=== PATIENT | female | born 1995 | race Two or more races ===

== ENCOUNTER 2016-06-01 10:55 | Emergency (ER) | payer MEDICAID ==
[~2016-06-01] VITALS: Ht 154.9 cm; Wt 76.7 kg
[2016-06-01 11:35] LABS: Basophils # (auto) 0 uL; Basophils % (auto) 0.4 % (0.0-2.0); Eosinophils # (auto) 0.1 uL; Eosinophils % (auto) 1.5 % (0.0-7.0); Hematocrit 38.4 % (36.0-46.0); Hemoglobin 12.8 g/dL (12.2-16.2); Lymphocytes # (auto) 1.9 uL; Lymphocytes % (auto) 27.3 % (10.0-50.0); Mean Corpuscular Hemoglobin 29.7 pg (28.0-32.0); Mean Corpuscular Hgb Conc. 33.2 g/dL (32.0-36.0); Mean Corpuscular Volume 89.5 fL (80.0-100.0); Mean Platelet Volume 7.4 fL (7.4-10.4); Monocytes # (auto) 0.4 uL; Monocytes % (auto) 5.4 % (0.0-12.0); Neutrophils # (auto) 4.5 uL; Neutrophils % (auto) 65.4 % (37.0-80.0); Platelet Count (auto) 354 10^3/uL (140-450); White Blood Cell 6.8 10^3/uL (4.4-10.8)
[2016-06-01 11:45] LABS: INR 0.99 (0.9-1.15); Partial Thromboplastin Time 25.9 sec (22.64-33.71); Prothrombin Time 10.7 sec (9.37-12.3)
[2016-06-01 11:53] LABS: Albumin 3.7 g/dL (3.4-5.0); BUN/Creatinine Ratio 13.8; Bilirubin, Total 0.4 mg/dL (0.2-1.0); Calcium 8.9 mg/dL (8.5-10.1); Potassium 3.9 mmol/L (3.5-5.1); Total Protein 7.7 g/dL (6.4-8.2)
[2016-06-01 14:06] LABS: Urine Bilirubin Negative (Negative); Urine Color Yellow (Yellow); Urine Glucose Normal (Normal); Urine Ketone Negative (Negative); Urine Nitrite Negative (Negative); Urine RBC 5 /hpf (0 - 4); Urine Squamous Epithelial Cell MANY /hpf (<5); Urine Urobilinogen Normal (Negative); Urine pH 5.5 (5.0-8.0)
[2016-06-01 14:20] LABS: Urine Blood 3+ /uL (Negative)
[2016-06-01 14:24] VITALS: BP 104/43
== END 2016-06-01 16:24 | disposition home or self-care (01) ==
LOC: ER 10:55
DX: O03.9 Complete or unspecified spontaneous abortion without complication (principal); Z3A.01 Less than 8 weeks gestation of pregnancy
CPT/HCPCS: 36415; 76801; 76817; 80053; 81001; 84702; 85025; 85610; 85730; 99291

== ENCOUNTER 2016-11-20 01:36 | Emergency (ER) | payer MEDICAID ==
[~2016-11-20] VITALS: Ht 154.9 cm; Wt 65.1 kg
[2016-11-20 01:54] VITALS: BP 108/62
[2016-11-20 02:39] LABS: Urine Bilirubin Negative (Negative); Urine Blood 2+ /uL (Negative); Urine Color Yellow (Yellow); Urine Glucose Normal (Normal); Urine Ketone Negative (Negative); Urine Mucus FEW (None Seen); Urine Nitrite Negative (Negative); Urine RBC 14 /hpf (0 - 4); Urine Squamous Epithelial Cell MOD /hpf (<5); Urine Urobilinogen Normal (Negative)
[2016-11-20 02:42] LABS: Basophils # (auto) 0 uL; Basophils % (auto) 0.3 % (0.0-2.0); Eosinophils # (auto) 0.1 uL; Eosinophils % (auto) 1.1 % (0.0-7.0); Hematocrit 36.3 % (36.0-46.0); Hemoglobin 12.4 g/dL (12.2-16.2); Lymphocytes # (auto) 2.3 uL; Lymphocytes % (auto) 19.4 % (10.0-50.0); Mean Corpuscular Hemoglobin 30.1 pg (28.0-32.0); Mean Corpuscular Hgb Conc. 34.2 g/dL (32.0-36.0); Mean Corpuscular Volume 87.9 fL (80.0-100.0); Mean Platelet Volume 6.8 fL (6.9-10.8); Monocytes # (auto) 0.7 uL; Neutrophils # (auto) 8.5 uL; Neutrophils % (auto) 73.2 % (37.0-80.0); Platelet Count (auto) 467 10^3/uL (140-450); Red Cell Distribution Width 12.7 % (11.8-14.3); White Blood Cell 11.6 10^3/uL (4.4-10.8)
[2016-11-20 02:51] LABS: Albumin 3.8 g/dL (3.4-5.0); BUN/Creatinine Ratio 12.5; Calcium 9.4 mg/dL (8.5-10.1); Potassium 3.8 mmol/L (3.5-5.1)
[2016-11-20 02:54] LABS: Bilirubin, Total 0.2 mg/dL (0.2-1.0); Total Protein 8.9 g/dL (6.4-8.2)
== END 2016-11-20 03:01 | disposition left against medical advice (07) ==
LOC: EDBD 01:40 → ER 01:40 → EDUNIT# 01:40 → ER 03:01
DX: R10.11 Right upper quadrant pain (principal); Z53.21 Procedure and treatment not carried out due to patient leaving prior to being seen by health care provider
CPT/HCPCS: 36415; 80053; 81001; 83690; 84702; 85025

== ENCOUNTER 2019-11-28 10:39 | Emergency (ER) | payer SELFPAY ==
[~2019-11-28] VITALS: Ht 154.9 cm; Wt 61.2 kg
[2019-11-28 11:29] VITALS: BP 116/47
== END 2019-11-28 11:33 | disposition home or self-care (01) ==
LOC: ER 10:39
DX: R51 Headache (principal)